=== PATIENT | female | born 1950 | race Two or more races ===

== ENCOUNTER 2020-12-17 06:52 | Day surgery (SDC) | payer OTHER | END 2020-12-17 14:55 | disposition home or self-care (01) | LOC: AMB-ENDOS 06:52 | PROVIDERS: ATTEND Colon & Rectal Surgery | DX: D12.4 Benign neoplasm of descending colon (principal); K64.1 Second degree hemorrhoids; Z12.11 Encounter for screening for malignant neoplasm of colon; Z20.822 Contact with and (suspected) exposure to COVID-19 ==

== ENCOUNTER 2021-10-21 08:00 | Inpatient (IN) | payer OTHER ==
[~2021-10-21] VITALS: Ht 165.1 cm; Wt 89.8 kg
[2021-10-21] MEDS ORDERED: ENALAPRIL MALEA10 MG PO (09:47)
[2021-10-21] MEDS ORDERED: SYNTHROID50 MCG PO (09:47)
[2021-10-21] MEDS ORDERED: SINGULAIR10 MG PO (09:47)
[2021-10-25] MEDS ORDERED: SIMVASTATIN20 MG (08:11)
== END 2021-10-27 19:05 | DRG 470 ==
LOC: O/R 10-25 05:48 → SURG 10-25 05:48 → SURH 10-25 08:00 → SURG 10-25 15:17
PROVIDERS: ADMIT Orthopaedic Surgery; ATTEND Orthopaedic Surgery
PROC: 0SRC0J9 Replacement of Right Knee Joint with Synthetic Substitute, Cemented, Open Approach (ICD-10-PCS; principal; 2021-10-25 10:15)
DX: M17.11 Unilateral primary osteoarthritis, right knee (principal); D62 Acute posthemorrhagic anemia; I10 Essential (primary) hypertension; E03.8 Other specified hypothyroidism; E66.8 Other obesity; Z20.822 Contact with and (suspected) exposure to COVID-19